=== PATIENT | male | born 1995 | race Caucasian/White ===

== ENCOUNTER 2021-04-21 09:30 | Emergency (ER) | payer SELFPAY ==
[2021-04-21 10:01] VITALS: BP 131/78; PULSE 87; RESP 16; TEMP 36.8; O2SAT 99; BMI 35.2
[2021-04-21 10:05] VITALS: BP 131/78; PULSE 87; RESP 16; TEMP 36.8
--- NOTE | 2021-04-21 10:16 | HMH.EDUTC ---
[facility] [place] Impression: Exposure to COVID-19 virus Disposition: Home, Self-Care Condition on Discharge: Good Instructions: DI for COVID-19 (Suspected or Confirmed ), Preventing the Spread of Coronavirus Discharge Instructions Additional Instructions: Drink plenty of fluids. Take tylenol or ibuprofen for pain or fever. Follow up with your regular doctor. GO TO THE ER FOR ANY CONCERNING SYMPTOMS Quarantine until you know the results of your covid-19 test. If it is positive, the health department should call you and give you further instructions about your length of Quarantine and other things. Notify your school or workplace of your results and follow their instructions regarding return to work/school. Prescriptions: Ondansetron [Zofran 4mg ODT] 4 mg PO DAILYP PRN #12 tab PRN Reason: Nausea Transmission Status: Received by [facility] Referrals: Provider,Referral, [Primary Care Provider] - Time of Disposition: 10:19 Medical Decision Making - Medical Records Medical records reviewed: No: I reviewed the patient's medical records. - Jorge Inquiry Pt receiving controlled substance: No Vital Signs: 04/21/21 10:01 04/21/21 10:05 Temperature 98.2 F 98.2 F Temperature Source Oral Pulse Rate 87 Pulse Rate [Left] 87 Respiratory Rate 16 16 Blood Pressure 131/78 Blood Pressure [Right Arm] 131/78 Blood Pressure Mean [Right Arm] 95 02 Sat by Pulse Oximetry 99 Orders (Tests/Meds): ORDERS Category Date Time Status Covid-19 Nasal PCR ([facility]) Routine Lab 04/21/21 09:58 [place] [facility] [place] - General Stated complaint: covid test Time Seen by Provider: 04/21/21 10:16 Mode of Arrival: Ambulatory Source of Information: Patient Limitations: No Limitations Description of Symptoms (Recalled from Triage Doc. by RN): pt was directly exposed to covid. pt is asymptomatic. HEENT Symptoms (Recalled from RN notes): No Resp Symptoms (Recalled from RN notes): No Skin Symptoms (Recalled from RN notes): No MS Symptoms (Recalled from RN notes): No Functional Status (Recalled from RN notes): na - History of Present Illness Provider Complaint: His mother developed symptoms and tested positive yesterday to covid-19. He lives with his mother. He has had no symptoms so far, but his work wants him to be tested. - Related Data Previous Rx's Medication Instructions Recorded Ondansetron [Zofran 4mg ODT] 4 mg PO DAILYP PRN #12 tab 04/21/21 Allergies Allergy/AdvReac Type Severity Reaction Status Date / Time NO KNOWN ALLERGIES Allergy Uncoded 08/02/17 14:54 - Worker's Comp Is this a Worker's Comp case?: No H History - Hepatitis A Screen Drug use history?: No High risk sexual behaviors?: No History of sexually transmitted infection?: No Currently employed?: No Childcare worker?: No Do you have indoor plumbing?: Yes Do you have electricity?: Yes Attestation statement:: This patient has been screened for Hepatitis A risk factors. I have reviewed the patient's past medical history: Yes ROS Obtained: Yes All systems reviewed & no additional complaints - Constitutional Constitutional: Reports system reviewed and no additional complaints, except as docu - Eyes Eyes: Reports system reviewed and no additional complaints, except as docu - ENT Ears, Nose, Mouth, and Throat: Reports system reviewed and no additional complaints, except as docu - Cardiovascular Cardiovascular: Reports system reviewed and no additional complaints, except as docu - Respiratory Respiratory: Reports system reviewed and no additional complaints, except as docu - Gastrointestinal Gastrointestingal: Reports: system reviewed and no additional complaints, except as docu - Integumentary/Breasts Skin/Breast: Denies rash Physical Exam - General General appearance: alert, in no apparent distress - Head Head exam: atraumatic, normocephalic, normal inspection -
--- NOTE | 2021-04-22 09:32 | PC.NURSE ---
pt notified of positive covid test results
== END 2021-04-21 10:27 | disposition home or self-care (01) ==
PROVIDERS: Emergency Provider Nurse Practitioner Family
DX: U07.1 COVID-19 (principal)
CPT/HCPCS: 99202; G0463; U0003

== ENCOUNTER 2021-08-09 13:53 | Emergency (ER) | payer SELFPAY ==
[2021-08-09 13:55] VITALS: BP 165/90; PULSE 87; RESP 16; TEMP 36.8; O2SAT 97; BMI 35.2
[2021-08-09 14:45] VITALS: BP 152/94; PULSE 86; RESP 15; O2SAT 97
[2021-08-09 15:01] VITALS: BP 143/86; PULSE 78; RESP 16; O2SAT 97
--- NOTE | 2021-08-09 15:24 | HMH.EDBACK ---
ED Disposition Clinical Impression: Strain of lumbar region Disposition: Home, Self-Care Condition on Discharge: Fair Instructions: DI for Low Back Pain Additional Instructions: Please follow-up with your care physician. Please start to see a physical therapist for your back pain. Prescriptions: Lidocaine [Lidocaine Pain Relief] 1 each TP DAILY #3 patch Transmission Status: Pending to [facility] methocarbamoL [Methocarbamol] 500 mg PO Q8 #10 tab Transmission Status: Pending to [facility] Referrals: Provider,Referral, MD [Primary Care Provider] - - Critical Care Critical Care Time: No Attestation: On 08/09/21, the high probability of a clinically significant, sudden or life threatening deterioration of the following system(s) required my full and direct attention, intervention and personal management. The time I documented below is in addition to time spent performing reported procedures but includes the following listed in this critical care notation. Medical Decision Making - Medical Records Medical records reviewed: Yes: I reviewed the patient's medical records. - Jorge Inquiry Pt receiving controlled substance: No Jorge was queried for this patient: No Vital Signs: 08/09/21 13:55 08/09/21 14:45 Temperature 98.2 F Temperature Source Oral Pulse Rate 86 Pulse Rate [Right] 87 Respiratory Rate 16 15 Blood Pressure 152/94 H Blood Pressure [Right Arm] 165/90 H Blood Pressure Mean 112 Blood Pressure Mean [Right Arm] 115 Blood Pressure Source [Right Arm] Automatic Cuff Blood Pressure Position [Right Arm] Sitting 02 Sat by Pulse Oximetry 97 97 Oxygen Delivery Method Room Air - Lab Data Lab results reviewed: Yes: I reviewed the patient's lab results. Orders (Tests/Meds): ED MEDICATIONS Generic Name Dose Route Start Last Admin Trade Name Freq PRN Reason Stop Dose Admin Methocarbamol 500 mg 08/09/21 21:00 08/09/21 14:54 Methocarbamol 500mg Tablet PO 09/08/21 20:59 500 mg BID NAN Administration Discontinued Medications Generic Name Dose Route Start Last Admin Trade Name Freq PRN Reason Stop Dose Admin Ketorolac Tromethamine 15 mg 08/09/21 14:39 08/09/21 14:53 Ketorolac 30mg/Ml Vial IM 08/09/21 14:40 15 mg ONCE ONE Administration Lidocaine 1 each 08/09/21 14:39 08/09/21 14:53 Lidocaine 5% Transdermal Patch TP 08/09/21 14:40 1 each ONCE ONE Administration Medical Decision Narrative: Patient is a 26-year-old male with no past medical history presenting to the ED with back pain. Patient is awake, alert, not in acute distress. Patient is medically stable, afebrile. Patient's physical exam remarkable for left-sided para spinal muscle tenderness. At this point I do not believe the patient needs any imaging, patient is not having any red flag symptoms. Patient is given Toradol, lidocaine patch, Robaxin. Patient feels much better. Patient is written for Robaxin and a lidocaine patch. Patient is given strict return precautions to follow-up with his primary care physician. Patient is educated on using physical therapy to help with his pain long-term. Back Pain HPI - General Chief Complaint: Back Pain/Injury Stated Complaint: back/hip pain since 1224 Time Seen by Provider: 08/09/21 15:24 Mode of Arrival: Ambulatory Limitations: No Limitations Description of Symptoms (Recalled from ER Triage Doc. by RN): PT c/o pain in his lower back that has started going into his left hip for the past 4 days. - History of Present Illness HPI Narrative: Patient is a 26-year-old male with no past medical history presenting to the ED with left-sided back pain that shoots down patient's leg. States that he has had back pain for several years. 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 Patient states that he normally has mild back pain however 4 days ago patient noted that his back pain
[2021-08-09 15:46] VITALS: BP 142/85; PULSE 81; RESP 18; TEMP 37; O2SAT 100
== END 2021-08-09 15:46 | disposition home or self-care (01) ==
PROVIDERS: Emergency Provider Emergency Medicine
DX: S39.012A Strain of muscle, fascia and tendon of lower back, initial encounter (principal); X50.0XXA Overexertion from strenuous movement or load, initial encounter
CPT/HCPCS: 99281

== ENCOUNTER 2022-04-12 08:46 | Emergency (ER) | payer BC, SELFPAY ==
[2022-04-12 09:20] VITALS: BP 148/90; PULSE 102; RESP 16; TEMP 37.2; O2SAT 97; BMI 37.4
[2022-04-12 09:35] VITALS: BP 148/90; PULSE 102; RESP 16; TEMP 37.2; O2SAT 97
--- NOTE | 2022-04-12 09:42 | EXP.UTC ---
Discharge Plan Disposition Patient Disposition: Home, Self-Care Condition: Good Prescriptions Prescriptions: No Action ondansetron 4 MG tablet,disintegrating 4 mg PO DAILYP PRN (Reason: Nausea) Qty: 12 0RF lidocaine 1 EACH adhesive patch,medicated 1 each TP DAILY Qty: 3 0RF methocarbamol 500 MG tablet 500 mg PO Q8 Qty: 10 0RF Referrals Follow up/Referrals: Provider,Referral, MD [Primary Care Provider] - See instructions Activity Restrictions/Add. Instructions Additional Instructions/Restrictions: *Monitor Temp, Over the counter Motrin or Tylenol as directed/as needed Tylenol every 4 hours and Motrin every 6 hours (as long as your family doctor has told you that you can take it) for fever or pain. and straight to ER if unable to lower temp less than 101.0 after medication given *Warm salt water gargles may help to soothe the throat *Throat Lozenges? *Warm fluids like tea with honey may help to soothe the throat? *Sleep elevated *Humidifier/Vaporizer Follow up IMMEDIATELY for new or worsening symptoms or no Noticeable improvement over the next 48-72 hours. 911 for difficulty breathing or swallowing You were tested for today for COVID19 your test result should be back in the next 24-48 hours, you may may check your results on the [facility] My Health Portal Make sure to take your Vitamins Vit. C Vit D and Zinc if you can take them Clinical Impressions Clinical Impression: Viral syndrome, Encounter for laboratory testing for COVID-19 virus Stand Alone Forms Stand Alone Forms: Work/School Release Instructions Patient Instructions: Coronavirus Disease 2019, Sore Throat Discharge ED Provider: Ciara Soto [facility] [place] General Stated complaint: Covid home + 04/11/22, wants retest Mode of Arrival: Ambulatory Source of Information: Patient Limitations: No Limitations Time Seen by Provider: 04/12/22 09:45 Description of Symptoms (Recalled from Triage Doc. by RN): PATIENT C/O COUGH, BODY ACHES, AND FEVER SINCE YESTERDAY. REPORTS A POSITIVE AT HOME COVID TEST, BUT NEEDS PCR FOR WORK HEENT Symptoms (Recalled from RN notes): No Resp Symptoms (Recalled from RN notes): Yes Skin Symptoms (Recalled from RN notes): No MS Symptoms (Recalled from RN notes): No Functional Status (Recalled from RN notes): WNL History of Present Illness Provider Complaint: Patient states that he started feeling bad yesterday States that he has been having cough, body aches, chills and headache States that he took a home COVID test and it was positive but needed a PCR test for work Related Data Previous Rx's Medication Instructions Recorded ondansetron 4 mg disintegrating 4 mg PO DAILYP PRN Nausea #12 tabs 04/21/21 tablet lidocaine 4 % topical patch 1 each TP DAILY #3 patches 08/09/21 methocarbamol 500 mg tablet 500 mg PO Q8 #10 tabs 08/09/21 Allergies Allergy/AdvReac Type Severity Reaction Status Date / Time No Known Allergies Allergy Verified 04/12/22 09:35 Worker's Comp Is this a Worker's Comp case?: No PFSH PFSH Social History (Updated 04/12/22 @ 09:35 by Catherine Ayala RN) Smoking Status: Unknown if ever smoked alcohol intake: never current occupational status: other Travel in the last 8 weeks: None ROS Obtained: Yes All systems reviewed & no additional complaints except as documented and Yes Systems reviewed as appropriate & no additional complaints except as documented Constitutional Constitutional: Reports system reviewed and no additional complaints, except as documented, Reports as per HPI, Reports body ache, Reports chills, Reports fever(s) and Reports headache(s) ENT Ears, Nose, Mouth, and Throat: Reports system reviewed and no additional complaints, except as documented, Reports as per HPI, Reports headache(s) and Reports nasal congestion Cardiovascular Cardiovascular: Reports system reviewed and no additional complaints, except as documented and Reports as per HPI Resp
== END 2022-04-12 09:53 | disposition home or self-care (01) ==
PROVIDERS: Emergency Provider Nurse Practitioner
DX: U07.1 COVID-19 (principal)
CPT/HCPCS: 99212; C9803; G0463; U0003; U0005

== ENCOUNTER → 2023-04-28 10:08 | Outpatient (CLI) | payer BC, SELFPAY ==
[2023-04-28 15:57] LABS: Semen Viscosity Watery (Normal)
[2023-04-28 15:58] LABS: 3Hr Motility Quality Moderate Progression (Mod-Rapid); 3Hr Sperm Motility 60 % (50-60); Motility Quality Good Progression (Mod-Rapid); Sperm Motility 85 % (50-90)
[2023-04-28 15:59] LABS: Sperm Count 36 mil/mm3 (20-160)
[2023-04-28 17:27] LABS: Sperm Morphology Normal (Normal)
== END ==
LOC: LAB 10:10
PROVIDERS: Visit Provider Obstetrics & Gynecology
DX: Z31.41 Encounter for fertility testing (principal)
CPT/HCPCS: 89320